=== PATIENT | female | born 1955 | race Caucasian/White ===

== ENCOUNTER 2016-07-06 19:09 | Emergency (ER) | payer MEDICARE ==
[2016-07-06 19:24] VITALS: BP 129/74
[2016-07-06] MEDS ORDERED: HYDROCODONE/APAP 5/325MG TABLET. PO ONE (20:00)
[2016-07-06] MEDS ORDERED: HYDR-971 PO (20:01)
--- NOTE | 2016-07-06 20:01 | PHYS DOC ---
Past Medical History Past Medical History: Arthritis Additional Past Medical Histor: BACK PROBLEMS Past Surgical History: Hysterectomy Additional Past Surgical Histo: FX LEFT FEMUR Additional Information: 07/05 PPD Alcohol Use: Occasionally Drug Use: Marijuana Adult General Chief Complaint Chief Complaint: LACERATION/AVULSION HPI HPI Patient is a 60 year old female complaining of a laceration to her scalp after the code of her van fell down and hit her on the head. Patient denies loss of consciousness, visual disturbances, nausea or vomiting or seizure-like behavior. Patient denies being on anticoagulants. Review of Systems Review of Systems Constitutional: Denies fever or chills [] Eyes: Denies change in visual acuity, redness, or eye pain [] HENT: Denies nasal congestion or sore throat [] Respiratory: Denies cough or shortness of breath [] Cardiovascular: No additional information not addressed in HPI [] GI: Denies abdominal pain, nausea, vomiting, bloody stools or diarrhea [] : Denies dysuria or hematuria [] Musculoskeletal: Denies back pain or joint pain [] Integument: Reports scalp laceration. Neurologic: Denies headache, focal weakness or sensory changes [] Endocrine: Denies polyuria or polydipsia [] Current Medications Current Medications Current Medications Medications (Trade) Dose Ordered Sig/Melisa Start Time Stop Time Status Last Admin Dose Admin Acetaminophen/ Hydrocodone Bitart (Lortab 5/325) 1 tab 1X ONCE 07/06/16 20:00 07/06/16 20:01 DC Allergies Allergies Allergies Coded Allergies Type Severity Reaction Last Updated Verified No Known Drug Allergies 07/06/16 No Physical Exam Physical Exam Constitutional: Well developed, well nourished, no acute distress, non-toxic appearance. [] HENT: Normocephalic, bilateral external ears normal, oropharynx moist, no oral exudates, nose normal. 1.5 cm laceration to the left hairline/scalp above the forehead. There is no palpable crepitus or step-off. Laceration does extend into the subcutaneous tissue. There is mild amount of active bleeding. Eyes: PERRLA, EOMI, conjunctiva normal, no discharge. [] Neck: Normal range of motion, no tenderness, supple, no stridor. Cardiovascular:Heart rate regular rhythm, no murmur [] Lungs & Thorax: Bilateral breath sounds clear to auscultation [] Abdomen: Bowel sounds normal, soft, no tenderness, no masses, no pulsatile masses. [] Skin: Warm, dry, no erythema, no rash. [] Back: No tenderness, no CVA tenderness. [] Extremities: No tenderness, no cyanosis, no clubbing, ROM intact, no edema. [] Neurologic: Alert and oriented X 3, normal motor function, normal sensory function, no focal deficits noted. Psychologic: Affect normal, judgement normal, mood normal. [] Current Patient Data Vital Signs Vital Signs Date Time Temp Pulse Resp B/P Pulse Ox O2 Delivery O2 Flow Rate FiO2 07/06/16 19:24 98.3 89 18 97 Room Air 98.3 EKG EKG [] Radiology/Procedures Radiology/Procedures Procedure note: Procedure was explained to the patient. She was given the option to receive either injectable anesthetic or for early anesthetic for wound repair. Patient elected to forego the anesthetic. Laceration was cleansed with Betadine solution and rinsed with saline. Wound was explored for foreign bodies. No foreign bodies were found. The wound margins were approximated utilizing 3 surgical [place]. Course & Med Decision Making Course & Med Decision Making Pertinent Labs and Imaging studies reviewed. (See chart for details) [] Dragon Disclaimer Dragon Disclaimer This electronic medical record was generated, in whole or in part, using a voice recognition dictation system. Departure Departure Impression: Primary Impression: Scalp laceration Disposition: 01 HOME, SELF-CARE Condition: IMPROVED Referrals: NO PCP (PCP) Patient Instructions: Head Injury, Adult, [id number], Staple Wound Closure, [id number] Additional Instructions: 1. Take the medication as prescribed. 2. [place] need to be removed in 7 days. 3. It is recommended that she follow up with her primary care doctor within a week for wound check and staple removal. 4. Review the discharge instructions provided, especially reasons to return to the emergency department. Scripts Hydrocodone/Apap 5-325 ([place] 5-325 Tablet)1 Each Tablet1 Tab PO PRN Q6HRS PRN PAIN #10 TAB Prov:SUKUMAR ESPINOZA 07/06/16 SUKUMAR ESPINOZA Jul 06, 2016 20:01
== END 2016-07-06 20:39 | disposition home or self-care (01) ==
LOC: ER 19:09
DX: S01.01XA Laceration without foreign body of scalp, initial encounter (principal); F17.200 Nicotine dependence, unspecified, uncomplicated; F12.10 Cannabis abuse, uncomplicated; W20.8XXA Other cause of strike by thrown, projected or falling object, initial encounter; Y93.89 Activity, other specified; Y92.89 Other specified places as the place of occurrence of the external cause; Y99.8 Other external cause status
CPT/HCPCS: 12001; 99283-25

== ENCOUNTER 2016-10-09 19:24 | Emergency (ER) | payer MEDICAID, MEDICARE ==
[~2016-10-09 19:24] MED LIST: HYDR-971 PO
[2016-10-09 19:36] VITALS: BP 122/86
[2016-10-09] MEDS ORDERED: AMOX1TAB61 PO (20:22)
--- NOTE | 2016-10-09 20:22 | PHYS DOC ---
Past Medical History Past Medical History: Arthritis Additional Past Medical Histor: BACK PROBLEMS Past Surgical History: Hysterectomy Additional Past Surgical Histo: FX LEFT FEMUR Alcohol Use: Occasionally Drug Use: Marijuana Adult General Chief Complaint Chief Complaint: FLU SYMPTOM HPI HPI Patient is a 61 year old female presents emergency department stating that she' s been having a cough and congestion for over a month. She states that she's also been having some anterior cervical lymph node enlargement. She states that she's been taking Mucinex DM [id number] as well as some Zyrtec. She states that she hasn't taken any today. She states that symptoms is helped although lately has not taken any improvement. She does state she has a history of smoking. She denies fever, chills. She does state that she has a productive cough that is yellow to green in color. She states that tonight she has some shortness of air when she is trying to lay down. She denies any shortness of air during the day. Review of Systems Review of Systems Constitutional: Denies fever or chills [] Eyes: Denies change in visual acuity, redness, or eye pain [] HENT: nasal congestion and sore throat [] Respiratory: cough with shortness of breath as night when sleeping Cardiovascular: No additional information not addressed in HPI [] GI: Denies abdominal pain, nausea, vomiting, bloody stools or diarrhea [] : Denies dysuria or hematuria [] Musculoskeletal: Denies back pain or joint pain [] Integument: Denies rash or skin lesions [] Neurologic: Denies headache, focal weakness or sensory changes [] Allergies Allergies Allergies Coded Allergies Type Severity Reaction Last Updated Verified No Known Drug Allergies 07/06/16 No Physical Exam Physical Exam Constitutional: Well developed, well nourished, no acute distress, non-toxic appearance. [] HENT: Normocephalic, atraumatic, bilateral external ears normal, oropharynx moist, no oral exudates, nose normal. Bilateral tympanic membranes appear to be normal. Patient with frontal and maxillary sinus tenderness. Throat with erythematous with clear to slightly yellow drainage noted in the back of the throat. No tonsils noted. No anterior cervical adenopathy noted at this time. Eyes: PERRLA, EOMI, conjunctiva normal, no discharge. [] Neck: Normal range of motion, no tenderness, supple, no stridor. [] Cardiovascular:Heart rate regular rhythm, no murmur [] Lungs & Thorax: Bilateral breath sounds clear to auscultation. Patient was noted to have a congested cough. Skin: Warm, dry, no erythema, no rash. [] Back: No tenderness Extremities: No tenderness, no cyanosis, no clubbing, ROM intact, no edema. [] Neurologic: Alert and oriented X 3, normal motor function, normal sensory function, no focal deficits noted. [] Psychologic: Affect normal, judgement normal, mood normal. [] Current Patient Data Vital Signs Vital Signs Date Time Temp Pulse Resp B/P Pulse Ox O2 Delivery O2 Flow Rate FiO2 10/09/16 19:36 97.7 90 20 96 Room Air 97.7 EKG EKG [] Radiology/Procedures Radiology/Procedures [] Course & Med Decision Making Course & Med Decision Making Pertinent Labs and Imaging studies reviewed. (See chart for details) Patient will be provided with a prescription for Augmentin and prednisone. Patient was recommended to continue Zyrtec and Mucinex DM. Patient was also recommended to stop smoking as this will help with decreasing the congestion. Patient is provided with signs and symptoms to return back to the emergency department. Patient states she does not have a primary care physician and she is from [place]. She'll be provided with a primary care physician list here in the emergency department. She was recommended to obtain a primary care physician in her area. Patient will be discharged home in stable condition. Patient agrees with discharge instructions treatment regimens and follow-up recommendations. [] Dragon Disclaimer Dragon Disclaimer This electronic medical record was generated, in whole or in part, using a voice recognition dictation system. Departure Departure Impression: Primary Impression: Sinusitis, acute Disposition: 01 HOME, SELF-CARE Condition: STABLE Referrals: NO PCP (PCP) Patient Instructions: Sinusitis, [id number], Smoking Cessation, Tips For Success Additional Instructions: You have been evaluated for your nasal congestion and cough. You've been noted to have a sinusitis infection. Tylenol or ibuprofen for fever chills generalized body aches and discomfort. Mucinex DM will also help instructed by quarry supervisor dimension stone [id number] to help with congestion and cough. Medication as prescribed. Make sure you complete the antibiotics as prescribed. Drink plenty of fluids. Follow-up to primary care physician in the next 3-5 days. Return back to emergency prior signs and symptoms of become worse. Scripts Amoxicillin/Potassium Clav (Augmentin 875-125 Tablet)1 Each Tablet1 Tab PO BID # 20 TAB Prov:RADHIKA NOYOLA APRN 10/09/16 RADHIKA NOYOLA APRN Oct 09, 2016 20:22
== END 2016-10-09 20:29 | disposition home or self-care (01) ==
LOC: ER 19:24
DX: J01.10 Acute frontal sinusitis, unspecified (principal); J01.00 Acute maxillary sinusitis, unspecified; M19.90 Unspecified osteoarthritis, unspecified site; F12.10 Cannabis abuse, uncomplicated; Z87.891 Personal history of nicotine dependence
CPT/HCPCS: 99283

== ENCOUNTER 2019-06-05 15:43 | Emergency (ER) | payer MEDICARE ==
[~2019-06-05] VITALS: Ht 152.4 cm; Wt 63.5 kg
[~2019-06-05 15:43] MED LIST changes: +AMOX1TAB61 PO; +HYDR-3164 PO; -HYDR-971 PO
[2019-06-05] MEDS ORDERED: IV NORMAL SALINE 1000ML BAG 1,000 ML IV SCH (16:11)
--- NOTE | 2019-06-05 16:21 | PHYS DOC ---
Past Medical History Past Medical History: Arthritis Additional Past Medical Histor: BACK PROBLEMS (RADHIKA TAVERAS APRN) Past Surgical History: Hysterectomy Additional Past Surgical Histo: FX LEFT FEMUR (RADHIKA TAVERAS APRN) Alcohol Use: Occasionally Drug Use: Marijuana (RADHIKA TAVERAS APRN) Adult General Chief Complaint Chief Complaint: FOREIGN BODY HPI HPI Patient is a 63 year old Female who presents with comes in today because she s tates that she had a jellylike piece of stool in her bowel movement this morning. She states that she has IBS, lupus, rheumatoid arthritis, GERD, high cholesterol, diabetes, chronic back problems, hysterectomy, asthma. Patient states that she went to her doctor recently and they put her on prednisone and told her that she needed to follow-up at a cancer [place] for further treatment of her lupus or rheumatoid arthritis. Patient states that she wants second opinion today. (RADHIKA TAVERAS APRN) Review of Systems Review of Systems GI: Intermittent abdominal soreness, intermittent nausea, intermittent vomiting, Jelly like stools, denies bloody stools or diarrhea [] All other systems were reviewed and found to be within normal limits, except as documented in this note. (RADHIKA TAVERAS APRN) Current Medications Current Medications Current Medications Medications (Trade) Dose Ordered Sig/Melisa Start Time Stop Time Status Last Admin Dose Admin Info (CONTRAST GIVEN -- Rx MONITORING) 1 each PRN DAILY PRN 06/05/19 17:45 06/05/19 19:33 DC Iohexol (Omnipaque 300 Mg/ml) 75 ml 1X ONCE 06/05/19 17:45 06/05/19 17:46 DC 06/05/19 17:49 75 ML Sodium Chloride 1,000 ml @ 1,000 mls/hr Q1H 06/05/19 16:11 06/05/19 17:10 DC 06/05/19 16:36 1,000 MLS/HR (SARANYA AU MD) Allergies Allergies Allergies Coded Allergies Type Severity Reaction Last Updated Verified No Known Drug Allergies 07/06/16 No (SARANYA AU MD) Physical Exam Physical Exam Constitutional: Well developed, well nourished, no acute distress, non-toxic appearance. [] HENT: Normocephalic, atraumatic, bilateral external ears normal, oropharynx moist, no oral exudates, nose normal. [] Eyes: PERRLA, EOMI, conjunctiva normal, no discharge. [] Neck: Normal range of motion, no tenderness, supple, no stridor. [] Cardiovascular:Heart rate regular rhythm, no murmur [] Lungs & Thorax: Bilateral breath sounds clear to auscultation [] Abdomen: Bowel sounds normal, soft, no tenderness, no masses, no pulsatile masses. [] Skin: Warm, dry, no erythema, no rash. [] Back: No tenderness, no CVA tenderness. [] Extremities: No tenderness, no cyanosis, no clubbing, ROM intact, no edema. [] Neurologic: Alert and oriented X 3, normal motor function, normal sensory function, no focal deficits noted. [] Psychologic: Affect normal, judgement normal, mood normal. Normal Physical Exam [] (BAFUS,RADHIKA Perez [employer] GUIDANCE COUNSELOR) Current Patient Data Vital Signs Vital Signs Date Time Temp Pulse Resp B/P (MAP) Pulse Ox O2 Delivery O2 Flow Rate FiO2 06/05/19 17:42 116/78 (91) 06/05/19 16:00 98.2 98 20 98 Room Air 98.2 (SARANYA AU MD) Lab Values Laboratory Tests Test 06/05/19 16:20 06/05/19 17:05 06/05/19 18:40 White Blood Count 12.5 x10^3/uL (4.0-11.0) H Red Blood Count 4.85 x10^6/uL (3.50-5.40) Hemoglobin 14.9 g/dL (12.0-15.5) Hematocrit 44.9 % (36.0-47.0) Mean Corpuscular Volume 93 fL (79-100) Mean Corpuscular Hemoglobin 31 pg (25-35) Mean Corpuscular Hemoglobin Concent 33 g/dL (31-37) Red Cell Distribution Width 13.4 % (11.5-14.5) Platelet Count 344 x10^3/uL (140-400) Neutrophils (%) (Auto) 64 % (31-73) Lymphocytes (%) (Auto) 25 % (24-48) Monocytes (%) (Auto) 9 % (0-9) Eosinophils (%) (Auto) 2 % (0-3) Basophils (%) (Auto) 1 % (0-3) Neutrophils # (Auto) 8.0 x10^3/uL (1.8-7.7) H Lymphocytes # (Auto) 3.1 x10^3/uL (1.0-4.8) Monocytes # (Auto) 1.1 x10^3/uL (0.0-1.1) Eosinophils # (Auto) 0.2 x10^3/uL (0.0-0.7) Basophils # (Auto) 0.1 x10^3/uL (0.0-0.2) Sodium Level 145 mmol/L (136-145) Potassium Level 3.5 mmol/L (3.5-5.1) Chloride Level 109 mmol/L (98-107) H Carbon Dioxide Level 28 mmol/L (21-32) Anion Gap 8 (6-14) Blood Urea Nitrogen 15 mg/dL (7-20) Creatinine 0.8 mg/dL (0.6-1.0) Estimated GFR (Cockcroft-Gault) 72.9 BUN/Creatinine Ratio 19 (6-20) Glucose Level 124 mg/dL (70-99) H Calcium Level 8.4 mg/dL (8.5-10.1) L Total Bilirubin 0.3 mg/dL (0.2-1.0) Aspartate Amino Transferase (AST) 19 U/L (15-37) Alanine Aminotransferase (ALT) 56 U/L (14-59) Alkaline Phosphatase 76 U/L (46-116) Total Protein 6.1 g/dL (6.4-8.2) L Albumin 3.2 g/dL (3.4-5.0) L Albumin/Globulin Ratio 1.1 (1.0-1.7) Lipase 89 U/L (73-393) Urine Collection Type Void Urine Color Yellow Urine Clarity Clear Urine pH 5.5 Urine Specific [place] >=1.030 Urine Protein Negative mg/dL (NEG-TRACE) Urine Glucose (UA) Negative mg/dL (NEG) Urine Ketones (Stick) Negative mg/dL (NEG) Urine Blood Negative (NEG) Urine Nitrite Negative (NEG) Urine Bilirubin Negative (NEG) Urine Urobilinogen Dipstick 0.2 mg/dL (0.2 mg/dL) Urine Leukocyte Esterase Negative (NEG) Urine RBC 0 /HPF (0-2) Urine WBC 0 /HPF (0-4) Urine Squamous Epithelial Cells Mod /LPF Urine Bacteria 0 /HPF (0-FEW) Urine Mucus Mod /LPF Urine Opiates Screen Neg (NEG) Urine Methadone Screen Neg (NEG) Urine Barbiturates Neg (NEG) Urine Phencyclidine Screen Neg (NEG) Urine Amphetamine/Methamphetamine Neg (NEG) Urine Benzodiazepines Screen Neg (NEG) Urine Cocaine Screen Neg (NEG) Urine Cannabinoids Screen Pos (NEG) Urine Ethyl Alcohol Neg (NEG) Laboratory Tests 06/05/19 16:20 Laboratory Tests 06/05/19 17:05 (SARANYA AU MD) Lab Values Laboratory Tests Test 06/05/19 16:20 06/05/19 17:05 06/05/19 18:40 White Blood Count 12.5 x10^3/uL (4.0-11.0) H Red Blood Count 4.85 x10^6/uL (3.50-5.40) Hemoglobin 14.9 g/dL (12.0-15.5) Hematocrit 44.9 % (36.0-47.0) Mean Corpuscular Volume 93 fL (79-100) Mean Corpuscular Hemoglobin 31 pg (25-35) Mean Corpuscular Hemoglobin Concent 33 g/dL (31-37) Red Cell Distribution Width 13.4 % (11.5-14.5) Platelet Count 344 x10^3/uL (140-400) Neutrophils (%) (Auto) 64 % (31-73) Lymphocytes (%) (Auto) 25 % (24-48) Monocytes (%) (Auto) 9 % (0-9) Eosinophils (%) (Auto) 2 % (0-3) Basophils (%) (Auto) 1 % (0-3) Neutrophils # (Auto) 8.0 x10^3/uL (1.8-7.7) H Lymphocytes # (Auto) 3.1 x10^3/uL (1.0-4.8) Monocytes # (Auto) 1.1 x10^3/uL (0.0-1.1) Eosinophils # (Auto) 0.2 x10^3/uL (0.0-0.7) Basophils # (Auto) 0.1 x10^3/uL (0.0-0.2) Sodium Level 145 mmol/L (136-145) Potassium Level 3.5 mmol/L (3.5-5.1) Chloride Level 109 mmol/L (98-107) H Carbon Dioxide Level 28 mmol/L (21-32) Anion Gap 8 (6-14) Blood Urea Nitrogen 15 mg/dL (7-20) Creatinine 0.8 mg/dL (0.6-1.0) Estimated GFR (Cockcroft-Gault) 72.9 BUN/Creatinine Ratio 19 (6-20) Glucose Level 124 mg/dL (70-99) H Calcium Level 8.4 mg/dL (8.5-10.1) L Total Bilirubin 0.3 mg/dL (0.2-1.0) Aspartate Amino Transferase (AST) 19 U/L (15-37) Alanine Aminotransferase (ALT) 56 U/L (14-59) Alkaline Phosphatase 76 U/L (46-116) Total Protein 6.1 g/dL (6.4-8.2) L Albumin 3.2 g/dL (3.4-5.0) L Albumin/Globulin Ratio 1.1 (1.0-1.7) Lipase 89 U/L (73-393) Urine Collection Type Void Urine Color Yellow Urine Clarity Clear Urine pH 5.5 Urine Specific [place] >=1.030 Urine Protein Negative mg/dL (NEG-TRACE) Urine Glucose (UA) Negative mg/dL (NEG) Urine Ketones (Stick) Negative mg/dL (NEG) Urine Blood Negative (NEG) Urine Nitrite Negative (NEG) Urine Bilirubin Negative (NEG) Urine Urobilinogen Dipstick 0.2 mg/dL (0.2 mg/dL) Urine Leukocyte Esterase Negative (NEG) Urine RBC 0 /HPF (0-2) Urine WBC 0 /HPF (0-4) Urine Squamous Epithelial Cells Mod /LPF Urine Bacteria 0 /HPF (0-FEW) Urine Mucus Mod /LPF Urine Opiates Screen Neg (NEG) Urine Methadone Screen Neg (NEG) Urine Barbiturates Neg (NEG) Urine Phencyclidine Screen Neg (NEG) Urine Amphetamine/Methamphetamine Neg (NEG) Urine Benzodiazepines Screen Neg (NEG) Urine Cocaine Screen Neg (NEG) Urine Cannabinoids Screen Pos (NEG) Urine Ethyl Alcohol Neg (NEG) Laboratory Tests 06/05/19 16:20 Laboratory Tests 06/05/19 17:05 (RADHIKA TAVERAS APRN) EKG EKG [] (RADHIKA TAVERAS APRN) Radiology/Procedures Radiology/Procedures [] (RADHIKA TAVERAS APRN) Impressions: [facility] [address] [place] [address] IMAGING REPORT Signed PATIENT: CHERYLE MEJIA ACCOUNT: [id number] : 1955 LOCATION: ER AGE: 63 SEX: F EXAM STATUS: REG ER ORD. PHYSICIAN: RADHIKA TAVERAS APRN REASON: "JELLY LIKE STOOLS" PROCEDURE: CT ABD PELV W/ IV CONTRST ONLY Exam: CT abdomen and pelvis with contrast INDICATION: Abnormal stools TECHNIQUE: Sequential axial images through the abdomen and pelvis obtained following the administration of 75 mL of Omni 300 IV contrast. Sagittal and coronal reformatted images were reconstructed from the axial data and reviewed. Comparisons: None FINDINGS: Heart size is normal. Visualized lung bases are clear. No pleural effusion. Diffuse hepatic steatosis is noted. Spleen, pancreas, gallbladder and adrenals are unremarkable. Kidneys demonstrate symmetric enhancement. No perinephric inflammation or hydronephrosis. No renal or ureteral calculi are identified. Bladder is decompressed not well evaluated. Uterus is not enlarged. No abnormal adnexal mass. Large and small bowel are unremarkable. Appendix is normal. No free intra-abdominal air or fluid. No obstruction. Abdominal aorta has a normal course and caliber. Abdominal vasculature is patent. No enlarged intra-abdominal lymph nodes are identified. No suspicious osseous lesions or acute fractures. IMPRESSION: 1. Hepatic steatosis. 2. No acute process in the bowel. No evidence for obstruction. Exposure: One or more of the following in the visualized dose reduction techniques were utilized for this examination: 1. Automated exposure control 2. Adjustment of the MA and/or KV according to patient size 3. Use of iterative of reconstructive technique Electronically signed by: Myriam Rivera MD (06/05/2019 6:06 PM) [id number] DICTATED and SIGNED BY: MYRIAM RIVERA MD DATE: 06/05/191805 (RADHIKA TAVERAS APRN) Course & Med Decision Making Course & Med Decision Making Patient is told that she needs to follow up with a specialist and take the medications that her doctors prescribed for her. It is explained to patient that if they have diagnosed with lupus and rheumatoid arthritis they then specialized blood testing and that she needs to go to a specialist for further care. Patient then goes on to say that she has IBS and so she has constipation and at times she feels that her abdomen is sore and at times she has nausea and vomiting. Patient goes on to talk about her back problems and her doctor put her on prednisone for a "breathing problem". She states that the prednisone should also help her lose weight but then goes on to say that she does not do well on prednisone she took herself off of it. Patient denies having hallucinations, SI or HI. She is alert and oriented. Patient denies having abdominal pain but states that it is sore. Abdomen is soft and nontender. Patient denies nausea, vomiting, diarrhea, abdominal pain, chest pain, shortness of breath, dizziness, headache, weakness, visual changes, numbness or tingling. Ambulatory with a steady gait. Skin pink warm and dry. Speaks in full clear sentences. PERRLA. Lungs are clear to auscultation all lobes. I have asked patient if she would like me to check her abdomen since she has pain that comes and goes and has this jellylike stool that she is worried about. Patient states yes he would like blood work. (RADHIKA TAVERAS APRN) Course & Med Decision Making I was not involved in the care of this patient after 1800 on 06/04/2019. (SARANYA AU MD) Dragon Disclaimer Dragon Disclaimer This electronic medical record was generated, in whole or in part, using a voice recognition dictation system. (RADHIKA TAVERAS APRN) Departure Departure Impression: Primary Impression: Encounter for medical screening examination Disposition: HOME, SELF-CARE Condition: STABLE Referrals: NO PCP (PCP) Patient Instructions: Medical Screening Exam Additional Instructions: Follow-up with primary care provider and specialists as your primary care jarretti karmen has told you. Take all your medications as prescribed. RADHIKA TAVERAS APRN Jun 05, 2019 16:21 SARANYA AU MD Jun 06, 2019 10:10
[2019-06-05 16:36] LABS: BASO # 0.1 x10^3/uL (0.0-0.2); BASO % 1 % (0-3); EOS # 0.2 x10^3/uL (0.0-0.7); EOS % 2 % (0-3); HEMATOCRIT 44.9 % (36.0-47.0); HEMOGLOBIN 14.9 g/dL (12.0-15.5); LYMPH # 3.1 x10^3/uL (1.0-4.8); LYMPH % 25 % (24-48); MEAN CORPUSCULAR HEMOGLOBIN 31 pg (25-35); MEAN CORPUSCULAR HGB CONC 33 g/dL (31-37); MEAN CORPUSCULAR VOLUME 93 fL (79-100); MONO # 1.1 x10^3/uL (0.0-1.1); MONO % 9 % (0-9); NEUT % 64 % (31-73); PLATELET COUNT 344 x10^3/uL (140-400); RED BLOOD COUNT 4.85 x10^6/uL (3.50-5.40); RED CELL DISTRIBUTION WIDTH 13.4 % (11.5-14.5); WHITE BLOOD COUNT 12.5 x10^3/uL (4.0-11.0)
[2019-06-05 17:23] LABS: CALCIUM 8.4 mg/dL (8.5-10.1); CREATININE 0.8 mg/dL (0.6-1.0); GFR 72.9; POTASSIUM 3.5 mmol/L (3.5-5.1)
[2019-06-05 17:31] LABS: ALBUMIN 3.2 g/dL (3.4-5.0); ALBUMIN/GLOBULIN RATIO 1.1 (1.0-1.7); TOTAL BILIRUBIN 0.3 mg/dL (0.2-1.0); TOTAL PROTEIN 6.1 g/dL (6.4-8.2)
[2019-06-05 17:42] VITALS: BP 116/78
[2019-06-05] MEDS ORDERED: IOHEXOL 300 MG/ML 100ML VIAL. IV ONE (17:45)
[2019-06-05] MEDS ORDERED: CONTRAST GIVEN. MC PRN (17:45)
--- NOTE | 2019-06-05 18:09 | RAD ---
Exam: CT abdomen and pelvis with contrast INDICATION: Abnormal stools TECHNIQUE: Sequential axial images through the abdomen and pelvis obtained following the administration of 75 mL of Omni 300 IV contrast. Sagittal and coronal reformatted images were reconstructed from the axial data and reviewed. Comparisons: None FINDINGS: Heart size is normal. Visualized lung bases are clear. No pleural effusion. Diffuse hepatic steatosis is noted. Spleen, pancreas, gallbladder and adrenals are unremarkable. Kidneys demonstrate symmetric enhancement. No perinephric inflammation or hydronephrosis. No renal or ureteral calculi are identified. Bladder is decompressed not well evaluated. Uterus is not enlarged. No abnormal adnexal mass. Large and small bowel are unremarkable. Appendix is normal. No free intra-abdominal air or fluid. No obstruction. Abdominal aorta has a normal course and caliber. Abdominal vasculature is patent. No enlarged intra-abdominal lymph nodes are identified. No suspicious osseous lesions or acute fractures. IMPRESSION: 1. Hepatic steatosis. 2. No acute process in the bowel. No evidence for obstruction. Exposure: One or more of the following in the visualized dose reduction techniques were utilized for this examination: 1. Automated exposure control 2. Adjustment of the MA and/or KV according to patient size 3. Use of iterative of reconstructive technique Electronically signed by: Myriam Miguel MD (06/05/2019 6:06 PM) [id number]
[2019-06-05 19:00] LABS: BILIRUBIN,URINE NEGATIVE (NEG); CLARITY,URINE CLEAR; COLOR,URINE YELLOW; NITRITE,URINE NEGATIVE (NEG); PH,URINE 5.5; PROTEIN,URINE NEGATIVE (NEG-TRACE); UROBILINOGEN,URINE 0.2 mg/dL (0.2 mg/dL)
[2019-06-05 19:06] LABS: AMPHETAMINE/METHAMPHETAMINE NEG (NEG); BARBITURATES NEG (NEG); BENZODIAZEPINES NEG (NEG); CANNABINOIDS POS (NEG); COCAINE NEG (NEG); METHADONE NEG (NEG); OPIATES NEG (NEG); PHENCYCLIDINE NEG (NEG)
[2019-06-05 19:09] LABS: SQUAMOUS EPITHELIAL CELL,UR MOD /LPF
[2019-06-05 19:11] LABS: BACTERIA,URINE 0 /HPF (0-FEW); RBC,URINE 0 /HPF (0-2); WBC,URINE 0 /HPF (0-4)
== END 2019-06-05 19:33 | disposition home or self-care (01) ==
LOC: ER 15:43
DX: R10.9 Unspecified abdominal pain (principal); R11.2 Nausea with vomiting, unspecified; K21.9 Gastro-esophageal reflux disease without esophagitis; E78.00 Pure hypercholesterolemia, unspecified; E11.9 Type 2 diabetes mellitus without complications; K58.9 Irritable bowel syndrome, unspecified; M06.9 Rheumatoid arthritis, unspecified; G89.29 Other chronic pain; J45.909 Unspecified asthma, uncomplicated; Z90.710 Acquired absence of both cervix and uterus
CPT/HCPCS: 36415; 74177; 80053; 80307; 81001; 83690; 85025; 96360; 99285; J7030; Q9967